=== PATIENT | female | born 1995 | race Caucasian/White ===

== ENCOUNTER 2016-07-08 08:24 | Emergency (ER) | payer BC ==
[~2016-07-08] VITALS: Ht 167.6 cm; Wt 81.6 kg
[~2016-07-08 08:24] MED LIST: AMOX875T PO; HYDR-971 PO; NAPR500T8 PO; PROAIR RESPICL90 MCG IH
[2016-07-08 08:52] LABS: BILIRUBIN,URINE NEGATIVE (NEG); GLUCOSE,URINE NEGATIVE (NEG); NITRITE,URINE NEGATIVE (NEG); PH,URINE 6.5; PROTEIN,URINE NEGATIVE (NEG-TRACE); UROBILINOGEN,URINE 0.2 mg/dL (0.2 mg/dL)
--- NOTE | 2016-07-08 08:57 | PHYS DOC ---
Past Medical History Past Medical History: Anxiety, Seizure Additional Past Medical Histor: ulcer, ADHS Past Surgical History: , Tonsillectomy Alcohol Use: Occasionally Drug Use: None Adult General Chief Complaint Chief Complaint: WEAKNESS/GENERALIZED HPI HPI Patient is a 20 year old female with history of anxiety and seizures who presents with multiple complaints. Patient is complaining of right jaw pain mild in nature that has been going on for the last 1 month. Patient states the pain is worse when she tries to chew or bite down. Patient states she has followed up with a dentist who removed on her wisdom teeth a couple weeks ago. Patient states the dentist has told her she has TM J. Patient denies any fever. Denies any nausea vomiting. She is complaining of generalized weakness. Patient stated this has been going on for the last 1 month. Patient states she has history of anxiety and has not taken her medicine for 1 month. Patient states she was seen by her PCP 1 month ago. Patient stated they did not address the anxiety part of her illness. She states she didn't have as much symptoms patient denies any suicidal homicidal ideation. Patient is also complaining of intermittent mild generalized headache that have been going on for months. Patient denies any headache right now. Denies this being the worst headache in her life. Denies any nausea vomiting with the headache. Denies any light sensitivity with a headache. Patient denies anything making the headaches worse or better. Review of Systems Review of Systems Constitutional: Generalized weakness Eyes: Denies change in visual acuity, redness, or eye pain [] HENT: Jaw pain right side Respiratory: Denies cough or shortness of breath [] Cardiovascular: No additional information not addressed in HPI [] GI: Denies abdominal pain, nausea, vomiting, bloody stools or diarrhea [] : Denies dysuria or hematuria [] Musculoskeletal: Denies back pain or joint pain [] Integument: Denies rash or skin lesions [] Neurologic: Denies headache, focal weakness or sensory changes [] Endocrine: Denies polyuria or polydipsia [] Allergies Allergies Allergies Coded Allergies Type Severity Reaction Last Updated Verified clarithromycin Allergy Intermediate 02/19/14 No Physical Exam Physical Exam Constitutional: Well developed, well nourished, no acute distress, non-toxic appearance. [] HENT: Normocephalic, atraumatic, bilateral external ears normal, oropharynx moist, no oral exudates, nose normal. [] Crepitus the right jaw on exam suspicious of TMJ Eyes: PERRLA, EOMI, conjunctiva normal, no discharge. [] Neck: Normal range of motion, no tenderness, supple, no stridor. [] Cardiovascular:Heart rate regular rhythm, no murmur [] Lungs & Thorax: Bilateral breath sounds clear to auscultation [] Abdomen: Bowel sounds normal, soft, no tenderness, no masses, no pulsatile masses. [] Skin: Warm, dry, no erythema, no rash. [] Back: No tenderness, no CVA tenderness. [] Extremities: No tenderness, no cyanosis, no clubbing, ROM intact, no edema. [] Neurologic: Alert and oriented X 3, normal motor function, normal sensory function, no focal deficits noted. [] Psychologic: Affect normal, judgement normal, mood normal. [] Current Patient Data Vital Signs Vital Signs Date Time Temp Pulse Resp B/P (MAP) Pulse Ox O2 Delivery O2 Flow Rate FiO2 07/08/16 08:40 99.3 97 20 123/79 (94) 97 Room Air 99.3 Lab Values Laboratory Tests Test 07/08/16 08:40 07/08/16 08:55 Urine Collection Type Unknown Urine Color Yellow Urine Clarity Clear Urine pH 6.5 Urine Specific [place] 1.020 Urine Protein Negative mg/dL (NEG-TRACE) Urine Glucose (UA) Negative mg/dL (NEG) Urine Ketones (Stick) Negative mg/dL (NEG) Urine Blood Negative (NEG) Urine Nitrite Negative (NEG) Urine Bilirubin Negative (NEG) Urine Urobilinogen Dipstick 0.2 mg/dL (0.2 mg/dL) Urine Leukocyte Esterase Moderate (NEG) Urine RBC 0 /HPF (0-2) Urine WBC 5-10 /HPF (0-4) Urine Squamous Epithelial Cells Mod /LPF Urine Bacteria Few /HPF (0-FEW) Urine Mucus Slight /LPF White Blood Count 5.6 x10^3/uL (4.0-11.0) Red Blood Count 4.30 x10^6/uL (3.50-5.40) Hemoglobin 13.7 g/dL (12.0-15.5) Hematocrit 39.8 % (36.0-47.0) Mean Corpuscular Volume 93 fL (79-100) Mean Corpuscular Hemoglobin 32 pg (25-35) Mean Corpuscular Hemoglobin Concent 35 g/dL (31-37) Red Cell Distribution Width 13.0 % (11.5-14.5) Platelet Count 259 x10^3/uL (140-400) Neutrophils (%) (Auto) 59 % (31-73) Lymphocytes (%) (Auto) 30 % (24-48) Monocytes (%) (Auto) 7 % (0-9) Eosinophils (%) (Auto) 3 % (0-3) Basophils (%) (Auto) 1 % (0-3) Neutrophils # (Auto) 3.3 x10^3uL (1.8-7.7) Lymphocytes # (Auto) 1.7 x10^3/uL (1.0-4.8) Monocytes # (Auto) 0.4 x10^3/uL (0.0-1.1) Eosinophils # (Auto) 0.2 x10^3/uL (0.0-0.7) Basophils # (Auto) 0.0 x10^3/uL (0.0-0.2) Sodium Level 139 mmol/L (136-145) Potassium Level 3.8 mmol/L (3.5-5.1) Chloride Level 105 mmol/L (98-107) Carbon Dioxide Level 26 mmol/L (21-32) Anion Gap 8 (6-14) Blood Urea Nitrogen 19 mg/dL (7-20) Creatinine 0.8 mg/dL (0.6-1.0) Estimated GFR (Cockcroft-Gault) 89.7 Glucose Level 115 mg/dL (70-99) H Calcium Level 9.1 mg/dL (8.5-10.1) Laboratory Tests 07/08/16 08:55 Laboratory Tests 07/08/16 08:55 EKG EKG [] Radiology/Procedures Radiology/Procedures [] Course & Med Decision Making Course & Med Decision Making Pertinent Labs and Imaging studies reviewed. (See chart for details) This is a 20-year-old female patient with history of anxiety who presents today with multiple complaints including right jaw pain worse on biting down, patient has been told by the dentist she has TMJ which I suspect is the cause of her pain. She is also complaining of generalized weakness and headaches. Negative urine hCG, urine has infection. Urine appears contaminated unfortunately we are not able to follow-up with the urine cultures. The patient was put on Bactrim. The CBC BMP with no acute findings. Vitals are stable. Patient was discharged with instructions to follow-up with PCP as well as neurologist as soon as possible. Discharged with naproxen and Flexeril for her pain. Dragon Disclaimer Dragon Disclaimer This electronic medical record was generated, in whole or in part, using a voice recognition dictation system. Departure Departure Impression: Primary Impression: TMJ (dislocation of temporomandibular joint) Additional Impressions: Generalized weakness Headache Anxiety Disposition: HOME, SELF-CARE Condition: STABLE Referrals: ARTEM ARMAS (PCP) FERDINAND DAWSON MD Follow-up as soon as possible for chronic headaches Patient Instructions: General Headache Without Cause, [id number], Temporomandibular Joint Pain-Brief, Urinary Tract Infection Additional Instructions: You were seen with multiple pain related complaints. Follow-up with the primary care doctor as soon as possible. We also gave you a neurologist. Follow-up for the headaches. Complete your antibiotics for UTI. Scripts Sulfamethoxazole/Trimethoprim (BACTRIM 400-80 MG TABLET) 1 Each Tablet 1 TAB PO BID, #14 TAB Prov: REENA FARMER APRN 07/08/16 Cyclobenzaprine Hcl (CYCLOBENZAPRINE HCL) 10 Mg Tablet 1 TAB PO TID, #30 TAB Prov: REENA FARMER APRN 07/08/16 Naproxen (NAPROXEN) 500 Mg Tablet.dr 1 TAB PO BID, #60 TAB 1 Refill Prov: REENA FARMER APRN 07/08/16 Problem Qualifiers Primary Impression: TMJ (dislocation of temporomandibular joint) Encounter type: initial encounter Qualified Codes: S03.00XA - Dislocation of jaw, unspecified side, initial encounter Additional Impressions: Headache Headache type: unspecified Headache chronicity pattern: unspecified pattern Intractability: not intractable Qualified Codes: R51 - Headache REENA FARMER JAZMIN July 08, 2016 08:56
[2016-07-08 09:01] LABS: BACTERIA,URINE FEW /HPF (0-FEW); RBC,URINE 0 /HPF (0-2); SQUAMOUS EPITHELIAL CELL,UR MOD /LPF
[2016-07-08 09:07] LABS: BASO % 1 % (0-3); EOS % 3 % (0-3); HEMATOCRIT 39.8 % (36.0-47.0); HEMOGLOBIN 13.7 g/dL (12.0-15.5); LYMPH # 1.7 x10^3/uL (1.0-4.8); LYMPH % 30 % (24-48); MEAN CORPUSCULAR HEMOGLOBIN 32 pg (25-35); MEAN CORPUSCULAR HGB CONC 35 g/dL (31-37); MEAN CORPUSCULAR VOLUME 93 fL (79-100); MONO % 7 % (0-9); NEUT % 59 % (31-73); PLATELET COUNT 259 x10^3/uL (140-400); WHITE BLOOD COUNT 5.6 x10^3/uL (4.0-11.0)
[2016-07-08 09:23] LABS: CALCIUM 9.1 mg/dL (8.5-10.1); CREATININE 0.8 mg/dL (0.6-1.0); GFR 89.7; POTASSIUM 3.8 mmol/L (3.5-5.1)
[2016-07-08] MEDS ORDERED: SULF1TAB23 PO (10:04)
[2016-07-08] MEDS ORDERED: CYCL10TA2 PO (10:04)
[2016-07-08] MEDS ORDERED: NAPR500T8 PO (10:04)
[2016-07-08 10:05] VITALS: BP 124/79
== END 2016-07-08 10:07 | disposition home or self-care (01) ==
LOC: ER 08:24
DX: S03.01XA Dislocation of jaw, right side, initial encounter (principal); F41.9 Anxiety disorder, unspecified; F90.9 Attention-deficit hyperactivity disorder, unspecified type; R53.1 Weakness; R51 Headache; Z88.1 Allergy status to other antibiotic agents; X58.XXXA Exposure to other specified factors, initial encounter; Y93.89 Activity, other specified; Y92.89 Other specified places as the place of occurrence of the external cause; Y99.8 Other external cause status
CPT/HCPCS: 36415; 80048; 81001; 81025; 85027; 99284